=== PATIENT | male | born 1990 | race Caucasian/White ===

== ENCOUNTER 2017-06-16 20:48 | Emergency (ER) | payer OTHER | END 2017-06-16 21:43 | disposition home or self-care (01) | LOC: E/R 21:43 | DX: J20.9 Acute bronchitis, unspecified (principal) | CPT/HCPCS: 99284; Z7502 ==

== ENCOUNTER 2018-04-02 22:20 | Emergency (ER) | payer OTHER ==
[2018-04-03] MEDS: AZITHROMYCIN 250 MG TAB PO (01:04)
[2018-04-03] MEDS: CEFTRIAXONE 250 MG INJ IM (01:05)
[2018-04-03 01:07] LABS: URINE BLOOD (Dip) POC Trace-lysed (NEGATIVE); URINE GLUCOSE (Dip) POC Negative (NEGATIVE); URINE KETONES (Dip) POC Trace (NEGATIVE); URINE LEUKOCYTE EST (Dip) POC 1+ (NEGATIVE); URINE NITRITE (Dip) POC Negative (NEGATIVE); URINE TOTAL PROTEIN POC Trace (NEGATIVE)
[2018-04-03 01:07] LABS: URINE PH (Dip) POC 5.5 (5.0-8.5)
== END 2018-04-03 02:09 | disposition home or self-care (01) ==
LOC: FTE 22:20
DX: R30.0 Dysuria (principal)
CPT/HCPCS: 81003; 87591; 96372; 99284-25

== ENCOUNTER 2018-12-15 15:40 | Emergency (ER) | payer OTHER ==
[2018-12-15] MEDS: AZITHROMYCIN 500 MG TAB PO (17:42)
[2018-12-15] MEDS: CEFTRIAXONE 250 MG INJ IM (17:42)
== END 2018-12-15 18:07 | disposition home or self-care (01) ==
LOC: FTE 15:40
DX: R30.0 Dysuria (principal)
CPT/HCPCS: 81003; 87591; 96372; 99284-25